=== PATIENT | female | born 1990 | race Caucasian/White ===

== ENCOUNTER 2020-11-02 20:02 | Emergency (ER) | payer OTHER ==
[~2020-11-02] VITALS: Ht 165.1 cm; Wt 74.8 kg
== END 2020-11-02 21:56 | disposition left against medical advice (07) ==
LOC: ER 20:02
DX: R10.13 Epigastric pain (principal)

== ENCOUNTER 2020-12-13 12:24 | Inpatient (IN) | payer OTHER ==
[~2020-12-13] VITALS: Ht 154.9 cm; Wt 1.8 kg
[2020-12-13] MEDS ORDERED: PRENATAL TABLE1 EAC2 PO (13:43)
== END 2020-12-16 15:45 | disposition home or self-care (01) | DRG 786 ==
LOC: LDR 12:24 → O/R 16:56 → OB/GYN 17:56
PROVIDERS: ADMIT Obstetrics & Gynecology; ATTEND Obstetrics & Gynecology
PROC: 4A1HXFZ Monitoring of Products of Conception, Cardiac Rhythm, External Approach (ICD-10-PCS; 2020-12-13)
PROC: 10D00Z1 Extraction of Products of Conception, Low, Open Approach (ICD-10-PCS; principal; 2020-12-13 13:00)
DX: O64.8XX0 Obstructed labor due to other malposition and malpresentation, not applicable or unspecified (principal); O60.14X0 Preterm labor third trimester with preterm delivery third trimester, not applicable or unspecified; O36.5930 Maternal care for other known or suspected poor fetal growth, third trimester, not applicable or unspecified; Z3A.35 35 weeks gestation of pregnancy; Z37.0 Single live birth; Z20.822 Contact with and (suspected) exposure to COVID-19